=== PATIENT | female | born 1985 | race Caucasian/White ===

== ENCOUNTER 2016-11-16 16:49 | Emergency (ER) | payer OTHER ==
[~2016-11-16] VITALS: Ht 152.4 cm; Wt 60.7 kg
[~2016-11-16 16:49] MED LIST: ALBU8.5H5 INH; FLUT1DIS3 INH; LEVA0.6320 INH; PRED10TA14 PO; PRED20TA PO
[2016-11-16] MEDS ORDERED: ALBUTEROL SULFATE 2.5 MG/3 ML ONE (17:23)
[2016-11-16] MEDS ORDERED: ALBUTEROL 0.5%, 20ML NPPBCONT PRN (17:30)
[2016-11-16] MEDS ORDERED: ALBUTEROL/IPRATROPIUM 2.5MG/0.5MG, 3 ML NPPB ONE (17:30)
[2016-11-16] MEDS ORDERED: IPRA3AMP NEB (18:03)
[2016-11-16] MEDS ORDERED: ALBUTEROL 0.5%, 20ML ONE (18:32)
[2016-11-16 19:55] LABS: BLOOD UREA NITROGEN 7 mg/dL (7-18)
[2016-11-16 20:25] VITALS: BP 123/84
== END 2016-11-16 20:27 | disposition left against medical advice (07) ==
LOC: ED 19:40
DX: J45.31 Mild persistent asthma with (acute) exacerbation (principal); J01.00 Acute maxillary sinusitis, unspecified
CPT/HCPCS: 36415; 71020; 80048; 82040; 85025; 93005; 94644; 99285; J7512

== ENCOUNTER 2018-11-22 12:33 | Emergency (ER) | payer MEDICARE, OTHER ==
[~2018-11-22] VITALS: Ht 157.5 cm; Wt 57.0 kg
[~2018-11-22 12:33] MED LIST changes: +CEFD300C37 PO; +IPRA3AMP30 NEB; +PRED5TAB PO
[2018-11-22] MEDS ORDERED: ALBUTEROL SULFATE 2.5 MG/3 ML NPPB ONE (13:00)
[2018-11-22] MEDS ORDERED: ALBUTEROL SULFATE 2.5 MG/3 ML ONE (13:15)
[2018-11-22] MEDS ORDERED: MAGNESIUM SULFATE PMX 2GM/50ML 50 ML IV ONE (13:30)
[2018-11-22] MEDS ORDERED: MAGNESIUM SULFATE PMX 2GM/50ML 50 ML ONE (13:37)
[2018-11-22 15:13] VITALS: BP 120/69
--- NOTE | 2018-11-22 15:14 | NUR ---
PT AT THIS TIME DOES NOT WANT TO BE ADMITTED. CONCERNS REGARDING PTS WORK OF BREATHING DISCUSSED WITH PT. PT AT THIS TIME IS REFUSING ADMIT. PT D/C FROM O2 AT THIS TIME TO EVAL ROOM AIR 02 SAT.
--- NOTE | 2018-11-22 15:19 | NUR ---
RELIEF RN NOTED PT RESP WHEEZE ERP TO THE BS PLANNING PT DC I REQUESTED ERP RE-EVAL PT DC ERP ORDERED BIPAP RESP TO THE BS W ERP PT REFUSES BIPAP AND REQUESTS DC
--- NOTE | 2018-11-22 15:22 | NUR ---
PT AT THIS TIME HAS A ROOM AIR SAT OF 86 WHILE LAYING IN BED. FINDING DISCUSSED WITH . MD PLAN IF PT CAN NOT MAINTAIN A WDL ROOM AIR SAT AT DISCHARGE AND STILL REFUSING ADMIT AN AMA WILL BE SIGNED.
== END 2018-11-22 16:09 | disposition left against medical advice (07) ==
LOC: ED 13:15
DX: J45.901 Unspecified asthma with (acute) exacerbation (principal); Z87.891 Personal history of nicotine dependence
CPT/HCPCS: 71046; 94640; 96365; 96366; 99291; J3475; J7512; J7613

== ENCOUNTER 2019-02-04 22:49 | Inpatient (IN) | payer MEDICARE, MEDICAID ==
[~2019-02-04] VITALS: Ht 157.5 cm; Wt 58.0 kg
--- NOTE | 2019-02-04 22:50 | NUR ---
Ekg delayed due to condition of pt and need for immediate medical assistance. Md aware and ekg called to room.
[2019-02-04] MEDS ORDERED: FLUT12AE11 PO (23:06)
[2019-02-04] MEDS ORDERED: ALBUTEROL/IPRATROPIUM 2.5MG/0.5MG, 3 ML ONE (23:07)
[2019-02-04] MEDS ORDERED: methylPREDNISolone SOD SUCC 125 MG/2 ML ONE (23:08)
[2019-02-04] MEDS ORDERED: ALBUTEROL 0.5%, 20ML ONE (23:18)
[2019-02-04] MEDS ORDERED: MAGNESIUM SULFATE PMX 2GM/50ML 50 ML ONE (23:21)
[2019-02-04] MEDS ORDERED: AZITHROMYCIN 500 MG in SODIUM CHLORIDE 0.9% 250 ML IVPB ONE (23:30)
[2019-02-04] MEDS ORDERED: IPRATROPIUM 0.5 MG/2.5 ML INHA NPPB ONE (23:30)
[2019-02-04] MEDS ORDERED: methylPREDNISolone SOD SUCC 125 MG/2 ML IVP ONE (23:30)
[2019-02-04] MEDS ORDERED: MAGNESIUM SULFATE PMX 2GM/50ML 50 ML IVPB ONE (23:30)
[2019-02-04] MEDS ORDERED: ALBUTEROL 0.5%, 20ML NPPB SCH (23:30)
[2019-02-04 23:40] LABS: BASOPHILS # (AUTO) 0.14 x10^3/uL (0-0.1); BASOPHILS % (AUTO) 1 % (0-1); EOSINOPHILS % (AUTO) 4 % (1-7); LYMPHOCYTES # (AUTO) 2.99 x10^3/uL (1-3.4); LYMPHOCYTES % (AUTO) 20 % (22-44); MD NO; MEAN CORPUSCULAR HEMOGLOBIN 27.4 pg (27.0-34.8); MEAN CORPUSCULAR HGB CONC 32.1 g/dL (32.4-35.8); MEAN CORPUSCULAR VOLUME 85.5 fL (80-100); MEAN PLATELET VOLUME 9.8 fL (7.4-10.4); MONOCYTES # (AUTO) 0.88 x10^3/uL (0.2-0.8); MONOCYTES % (AUTO) 6 % (2-9); NEUTROPHILS # (AUTO) 10.03 x10^3/uL (1.8-6.8); NEUTROPHILS % (AUTO) 69 % (42-75); PLATELET COUNT 375 x10^3/uL (130-400); RED BLOOD COUNT 5.29 x10^6/uL (3.82-5.3)
--- NOTE | 2019-02-04 23:40 | NUR ---
PT MOVED TO T4 FROM ROOM 12 IN SEVERE RESP. DISTRESS. MD AT BEDSIDE. RT AT BEDSIDE WITH BIPAP. ZITHROMAX AND MAG INFUSING.
[2019-02-04 23:50] LABS: ALBUMIN 3.2 g/dL (3.4-5.0); ANION GAP 6 mmol/L (5-15); CALCIUM 8.8 mg/dL (8.5-10.1); CHLORIDE 104 mmol/L (98-107); CREATININE 0.73 mg/dL (0.55-1.02)
--- NOTE | 2019-02-05 00:01 | NUR ---
20G TO RAC INFILTRATED, DC'D, CANNULA INTACT, PRESSURE DRESSING APPLIED.
--- NOTE | 2019-02-05 00:07 | NUR ---
LATE ENTRY: RECIEVED REPORT FROM MK MENENDEZ RN, PT IN ROOM WITH RT PREETHI AT BEDSIDE WITH SIGNIFICANT WOB AND DISTRESS. PT BREATHING ABOUT 40 PER MINUTE AND DIAPHORESIS AND HYPOXIA PRESENT ON CONTINOUS NEB. PT REPORTS HX OF ASTHAMA, DELAY IN EKG. NOT WANTING BLOOD CULTURES AT THIS TIME. THIS RN ESTABLISHED RIGHT EJ 18G PIV AND THEN A 18G LEFT UPPER ARM. PT TOLERATED PROCEDURE WELL. PT HOWEVERE DESPITE MAGNESIUM INFUSION AND STEROIDS AND REPS THERAPY WAS UNABLE TO SLOW BREAHTING SO THIS RN AND RT RECOMMNEDED TO MD, THAT PT BE PLACED ON BI-PAP TO GIVE H20 PRESSURE AND RESET HER BREATHING. MD AGGRED TO THIS AND THE PT WAS MOVED TO [place] [id number] WHERE MD PERFORMED ANOTHER IMMEDIATE EXAM AND GAVE RECOMENDED BI-PAP SETTINGS OF (13/5 WITH 70% FI02). PT WAS MAINTAINED ON BI-PAP AND RECONNECTED TO ALL MONITORING EQUIPMENT. PT HAD EXPIRATORY WHEEZNG AND GASPING WITH AIR MOVEMENT WITHOUT AUSCULTATION. ONE SET OF BLOOD CULTURES WAS COLLECTED AT THIS TIME. BEDSIDE REPORT WAS GIVEN TO NAEEM HARKINS RN. DOES NOT WANT TO WORK PT UP FOR SEPSIS HE BELEIVES THIS IS SECONDARY SYMPTOMS TO ASTHMA ATTACK/ RESP DISTRESS. PT REPORTS HAIVNG ALOT OF MONEY/GUADARRAMA IN HER PURSE. IN THE PRESENCE OF THIS RN, PREETHI RT AND NAEEM RN, IT WAS RECOMMENDED TO PT THAT SHE CHECK IN HER BELOGNINGS TO SECURITY THE HOSPTIAL AND RNS CANNOT BE RESPONSIBLE FOR HER POSSESSIONS WHILE IN THE ROOM. PT DID NOT WANT TO DO THIS AND WANTS TO KEEP HER AT BEDSIDE AND VERBALZIED UNDERSTANDING THAT WE ARE NOT RESPONSIBLE FOR ANY LOST ITEMS OR GUADARRAMA.
--- NOTE | 2019-02-05 00:47 | NUR ---
PT RESTING QUIETLY, WAITING FOR BED ASSIGNMENT, TO BE ADMITTED TO CCU. VS UPDATED.
--- NOTE | 2019-02-05 00:55 | NUR ---
REPORT TO RONNY SHARMA. PT TO BE ADMITTED TO ROOM 549-2.
[2019-02-05] MEDS ORDERED: ACETAMINOPHEN 325 MG TABLET PO PRN (01:00)
[2019-02-05] MEDS ORDERED: ONDANSETRON ODT 4 MG PO PRN (01:00)
[2019-02-05 01:47] VITALS: BP 156/91
[2019-02-05 01:55] VITALS: BP 156/91
[2019-02-05] MEDS: ALBUTEROL/IPRATROPIUM 2.5MG/0.5MG, 3 ML HHN SCH ×6 (02:18→22:30)
[2019-02-05 04:00] VITALS: BP 130/69
[2019-02-05] MEDS: methylPREDNISolone SOD SUCC 40 MG/ML IV SCH ×3 (05:58→17:37)
[2019-02-05] MEDS: BUDESONIDE 0.5 MG/2 ML INHA NPPB SCH ×2 (06:55→22:30)
[2019-02-05 12:36] LABS: AMPHETAMINE SCREEN, URINE Positive (Negative); BARBITURATE SCREEN, URINE Negative (Negative); BENZODIAZEPINE SCREEN, URINE Negative (Negative); CANNABINOID SCREEN, URINE Negative (Negative); COCAINE SCREEN, URINE Negative (Negative)
[2019-02-05 12:37] LABS: METHADONE SCREEN, URINE Negative (Negative); OPIATE SCREEN, URINE Positive (Negative)
[2019-02-05 16:22] VITALS: BP 106/61
[2019-02-05 21:31] VITALS: BP 110/63
[2019-02-06] MEDS: methylPREDNISolone SOD SUCC 40 MG/ML IV SCH ×2 (00:48→05:43)
[2019-02-06] MEDS ORDERED: AZITHROMYCIN 500 MG in SODIUM CHLORIDE 0.9% 250 ML IV SCH (01:00)
[2019-02-06 01:39] VITALS: BP 108/62
[2019-02-06] MEDS: ALBUTEROL/IPRATROPIUM 2.5MG/0.5MG, 3 ML HHN SCH ×3 (02:46→09:55)
[2019-02-06 04:29] VITALS: BP 110/64
[2019-02-06 05:46] LABS: ANION GAP 7 mmol/L (5-15); CALCIUM 8.9 mg/dL (8.5-10.1); CHLORIDE 107 mmol/L (98-107); CREATININE 0.69 mg/dL (0.55-1.02)
[2019-02-06] MEDS: BUDESONIDE 0.5 MG/2 ML INHA NPPB SCH (06:50)
[2019-02-06 07:05] VITALS: BP 102/51
[2019-02-06 07:24] LABS: BASOPHILS # (AUTO) 0.04 x10^3/uL (0-0.1); BASOPHILS % (AUTO) 0 % (0-1); EOSINOPHILS % (AUTO) 0 % (1-7); LYMPHOCYTES # (AUTO) 1.13 x10^3/uL (1-3.4); LYMPHOCYTES % (AUTO) 8 % (22-44); MD SCAN; MEAN CORPUSCULAR HEMOGLOBIN 27.5 pg (27.0-34.8); MEAN CORPUSCULAR VOLUME 85.9 fL (80-100); MEAN PLATELET VOLUME 11.7 fL (7.4-10.4); MONOCYTES # (AUTO) 0.74 x10^3/uL (0.2-0.8); MONOCYTES % (AUTO) 5 % (2-9); NEUTROPHILS # (AUTO) 12.76 x10^3/uL (1.8-6.8); NEUTROPHILS % (AUTO) 87 % (42-75); PLATELET COUNT 271 x10^3/uL (130-400); RED BLOOD COUNT 4.76 x10^6/uL (3.82-5.3); RED CELL DISTRIBUTION WIDTH 14.1 % (9.6-15.2)
== END 2019-02-06 11:15 | disposition left against medical advice (07) | DRG 189 ==
LOC: ED 23:26 → EDIP 02-05 00:28 → CCU 02-05 01:20 → 4NOR 02-05 15:59
PROVIDERS: ADMIT Internal Medicine; ATTEND Internal Medicine
PROC: 5A09357 Assistance with Respiratory Ventilation, Less than 24 Consecutive Hours, Continuous Positive Airway Pressure (ICD-10-PCS; principal; 2019-02-04)
PROC: 5A09357 Assistance with Respiratory Ventilation, Less than 24 Consecutive Hours, Continuous Positive Airway Pressure (ICD-10-PCS; 2019-02-05)
DX: J96.01 Acute respiratory failure with hypoxia (principal); J45.52 Severe persistent asthma with status asthmaticus; D72.829 Elevated white blood cell count, unspecified; F15.90 Other stimulant use, unspecified, uncomplicated; R00.0 Tachycardia, unspecified; Z87.891 Personal history of nicotine dependence
CPT/HCPCS: 36415; 36600; 71045; 80048; 80307; 82040; 82803; 83880; 84145; 85025; 87081; 93005; 94640; 94644; 94660; 96365; 96368; G0378; J0456; J7620; J7626; J7644; J2920; J2930; J3475; J7050

== ENCOUNTER 2020-12-26 08:00 | Outpatient (CLI) | payer MEDICARE, MEDICAID ==
[~2020-12-26] VITALS: Ht 157.5 cm; Wt 63.6 kg
[~2020-12-26 08:00] MED LIST changes: +FLUT12AE11 PO
[2020-12-26] MEDS ORDERED: FLUT1BLS15 INH (16:09)
[2020-12-26] MEDS ORDERED: PRED5TAB PO (16:09)
== END 2020-12-26 23:59 | disposition home or self-care (01) ==
LOC: STAR 08:00 → EDSTATUS 12-29 09:30
PROVIDERS: ATTEND Internal Medicine
DX: Z20.822 Contact with and (suspected) exposure to COVID-19 (principal); J45.40 Moderate persistent asthma, uncomplicated
CPT/HCPCS: U0003; U0005